=== PATIENT | female | born 1985 | race Caucasian/White ===

== ENCOUNTER 2022-09-25 18:06 | Emergency (ER) | payer BC ==
[2022-09-25 18:29] VITALS: BMI 30.9
[2022-09-25 20:38] LABS: BASO % 0.7 % (0-2.0); EOS % 4.6 % (0-4.5); HEMATOCRIT 37.9 % (32.4-45.2); HEMOGLOBIN 13.2 GM/dL (10.7-15.3); LYMPH % 32.3 % (8-40); MCH 29.4 pg (25.7-33.7); MCHC 34.9 g/dl (32.0-36.0); MEAN CELL VOLUME 84.3 fl (80-96); MEAN PLT VOLUME 7.9 fl (7.5-11.1); MONO % 6.7 % (3.8-10.2); NEUT % 55.7 % (42.8-82.8); PLATELET COUNT 337 10^3/uL (134-434); RBC 4.49 M/mm3 (3.60-5.2); RDW 12.9 % (11.6-15.6); WHITE BLOOD COUNT 10.8 K/mm3 (4.0-10.0)
[2022-09-25 20:45] LABS: INR 1.03 (0.83-1.09); PROTHROMBIN TIME (PATIENT) 11.9 SEC (9.7-13.0)
[2022-09-25 20:48] LABS: ACTIVATED PTT 27.4 SECONDS (25.2-36.5)
[2022-09-25 20:59] LABS: ALBUMIN 3.6 g/dl (3.4-5.0); BLOOD UREA NITROGEN 14.1 mg/dL (7-18); CALCIUM 9.6 mg/dL (8.5-10.1)
[2022-09-25 21:03] LABS: CREATININE 0.8 mg/dL (0.55-1.3)
[2022-09-25 21:04] LABS: BILIRUBIN,TOTAL 0.5 mg/dL (0.2-1); TOT PROT 7.5 g/dl (6.4-8.2)
[2022-09-25] MEDS ORDERED: KETOROLAC TROMETHAMINE 30 MG/1 ML VIAL IVPUSH ONE (21:44)
[2022-09-25] MEDS ORDERED: KETOROLAC TROMETHAMINE 15 MG/ML VIAL ONE (22:35)
[2022-09-25] MEDS ORDERED: DIPHTH,PERTUSS(ACELL),TET 0.5 ML DISP.SYRIN IM ONE ×2 (22:37)
[2022-09-26 01:04] VITALS: BP 126/77; PULSE 89; RESP 16; TEMP 98.6
== END 2022-09-26 01:12 | disposition home or self-care (01) ==
LOC: JER 18:06
PROC: 3E0333Z Introduction of Anti-inflammatory into Peripheral Vein, Percutaneous Approach (ICD-10-PCS; principal; 2022-09-25)
PROC: 3E0234Z Introduction of Serum, Toxoid and Vaccine into Muscle, Percutaneous Approach (ICD-10-PCS; 2022-09-25)
DX: S31.814A Puncture wound with foreign body of right buttock, initial encounter (principal); X95.01XA Assault by airgun discharge, initial encounter; Y93.01 Activity, walking, marching and hiking
CPT/HCPCS: 36415; 70450-TC; 70486-TC; 72125-TC; 72193-TC; 80053; 84703; 85025; 85610; 85730; 90715; 99285-25; Q9967

== ENCOUNTER 2022-09-27 15:28 | Emergency (ER) | payer BC ==
[2022-09-27 16:00] VITALS: BP 134/81; PULSE 89; RESP 16; TEMP 98.5; BMI 30.9
[2022-09-27] MEDS ORDERED: SULFAMETHOXAZOLE/TRIMETHOPRIM 800MG/160MG D.S. TABLET PO ONE (17:22)
[2022-09-27] MEDS ORDERED: SULFAMETHOXAZOLE/TRIMETHOPRIM 800MG/160MG D.S. TABLET ONE (17:31)
== END 2022-09-27 17:50 | disposition home or self-care (01) ==
LOC: JER 15:28 → JERFT 15:28
DX: S31 Open wound of abdomen, lower back, pelvis and external genitals (principal); Z48.00 Encounter for change or removal of nonsurgical wound dressing
CPT/HCPCS: 99283-25